=== PATIENT | female | born 1960 | race Caucasian/White ===

== ENCOUNTER 2017-08-22 18:35 | Inpatient (IN) | payer BC ==
[~2017-08-22] VITALS: Ht 157.5 cm; Wt 80.7 kg
[~2017-08-22 18:35] MED LIST: IBUPROFEN 800800 M1 PO; LISINOPRIL20 MG PO; PERCOCET 7.5-31 EACH PO; PROTONIX40 M1 PO; XANAX 0.5 MG0.5 MG PO
[2017-08-22 18:43] VITALS: BP 142/91
[2017-08-22] MEDS ORDERED: PRAZOSIN 1 MG CA1 MG PO (18:47)
[2017-08-22] MEDS ORDERED: NEURONTIN 300300 M1 PO (18:47)
[2017-08-22] MEDS ORDERED: PAXIL10 MG PO (18:47)
[2017-08-22] MEDS ORDERED: METHYLPHENIDATE20 MG PO (18:48)
[2017-08-22 19:07] LABS: ABSOLUTE LYMPHOCYTES 2.1 thou/uL (0.8-5.3); HEMOGLOBIN 13.5 gm/dL (12.0-15.0)
[2017-08-22 19:08] LABS: ABSOLUTE BASOPHILS 0.1 thou/uL (0.0-0.2); ABSOLUTE EOSINOPHILS 0.2 thou/uL (0.0-0.7); ABSOLUTE MONOCYTES 0.6 thou/uL (0.0-1.2); ABSOLUTE NEUTROPHILS 5.4 thou/uL (1.6-8.1); EOSINOPHILS 2.3 %; HEMATOCRIT 39.3 % (37.0-47.0); LYMPHOCYTES 24.8 %; MCH 31.3 pg (26.0-34.0); MCHC 34.5 g/dL (28.0-37.0); MCV 90.6 fL (80.0-100.0); MONOCYTES 7.6 %; MPV 9.4 fl. (7.2-11.1); NUCLEATED RBCS 0 /100WBC; PLATELET COUNT* 241 thou/uL (150-400); POLYS 64.3 %; RBC 4.33 mil/uL (4.20-5.00); RDW-CV 13.3 % (10.5-14.5); WBC 8.4 thou/uL (4.0-11.0)
[2017-08-22 19:15] LABS: CALCIUM 8.9 mg/dL (8.5-10.1); CREATININE 1.1 mg/dL (0.6-1.3); POTASSIUM 3.5 mmol/L (3.5-5.1)
[2017-08-22 19:17] LABS: APTT 19.8 Seconds (25.0-31.3); PROTIME 9.8 Seconds (9.20-11.50)
[2017-08-22 19:33] LABS: ALBUMIN 3.6 g/dL (3.4-5.0); CK-MB MASS 1.6 ng/mL (<0.5-3.6); MAGNESIUM 1.7 mg/dL (1.8-2.4); TOTAL BILIRUBIN 0.3 mg/dL (<0.1-1.0); TOTAL PROTEIN 7.2 g/dL (6.4-8.2); TROPONIN-I LEVEL 0.21 ng/mL (<0.06)
[2017-08-22 19:52] LABS: INFLUENZA A ANTIGEN None Detected (None Detect); INFLUENZA B ANTIGEN None Detected (None Detect)
[2017-08-22 22:00] VITALS: BP 126/66
[2017-08-22 23:00] VITALS: BP 112/63
[2017-08-23] VITALS: BP 103/70
[2017-08-23] MEDS ORDERED: PROAIR HFA8.5 GM INH (01:42)
[2017-08-23 02:42] LABS: HEMATOCRIT 36.7 % (37.0-47.0); HEMOGLOBIN 12.5 gm/dL (12.0-15.0); MCH 31.2 pg (26.0-34.0); MCHC 34.1 g/dL (28.0-37.0); MCV 91.3 fL (80.0-100.0); MPV 9.3 fl. (7.2-11.1); RBC 4.01 mil/uL (4.20-5.00); RDW-CV 13.3 % (10.5-14.5); WBC 7.3 thou/uL (4.0-11.0)
[2017-08-23 03:56] LABS: ALBUMIN 3.4 g/dL (3.4-5.0); CALCIUM 8.6 mg/dL (8.5-10.1); CREATININE 1.1 mg/dL (0.6-1.3); POTASSIUM 4.1 mmol/L (3.5-5.1); TOTAL BILIRUBIN 0.2 mg/dL (<0.1-1.0); TOTAL PROTEIN 6.4 g/dL (6.4-8.2)
[2017-08-23 04:00] VITALS: BP 86/47
[2017-08-23 08:00] VITALS: BP 101/61
[2017-08-23 12:00] VITALS: BP 123/74
--- NOTE | 2017-08-23 16:26 | 2DMMODE ---
[place] [address] 2 D/M-MODE ECHOCARDIOGRAM Name: JENNIFER LYNN Room: [address] ADM IN [facility]#: [id number] Admission: 08/22/17 Attend Phys: Julius Farias Discharge: Date of : 64 Date of Service: 08/23/17 1626 Report #: [id number] THIS REPORT FOR: //name// APPROVED REPORT Study performed: 08/23/2017 11:47:31 EXAM: Comprehensive 2D, Doppler, and color-flow Echocardiogram Patient Location: In-Patient Room #: 220 Status: routine BSA: 1.67 HR: 93 bpm BP: 86/47 mmHg Rhythm: NSR Other Information Study Quality: Good Indications Pulmonary Embolism Dyspnea 2D Dimensions LVEF(%): 58.40 (>50%) IVSd: 8.83 (7-11mm) LVOT Diam: 18.59 (18-24mm) LVDd: 37.39 mm PWd: 6.92 (7-11mm) Ascending Ao: 28.77 (22-36mm) LVDs: 26.08 (25-40mm) Aortic Root: 27.98 mm Reynoso's LVEF: 58.40 % Volumes Left Atrial Volume (Systole) LA ESV Index: 17.50 mL/m2 Aortic Valve AoV Peak Ifeanyi.: 1.44 m/s AO Peak Gr.: 8.25 mmHg LVOT Max P.87 mmHg AO Mean Gr.: 4.23 mmHg LVOT Mean P.29 mmHg LVOT Max V: 1.40 m/s AO V2 VTI: 22.23 cm LVOT Mean V: 0.81 m/s KIA (VTI): 2.81 cm2 LVOT V1 VTI: 23.05 [place] [address] 2 D/M-MODE ECHOCARDIOGRAM Name: JENNIFER LYNN Room: [address] IN .R.#: [id number] Admission: 08/22/17 Attend Phys: Julius Farias Discharge: Date of : 64 Date of Service: 08/23/17 1626 Report #: [id number] E/A Ratio: 0.71 MV Decel. Time: 166.95 ms MV E Max Ifeanyi.: 0.64 m/s MV PHT: 48.42 ms MVA (PHT): 4.54 cm2 TDI E/Lateral E': 8.00 E/Medial E': 5.33 Medial E' Ifeanyi.: 0.12 m/s Lateral E' Ifeanyi.: 0.08 m/s Pulmonary Valve PV Peak Ifeanyi.: 0.99 m/s PV Peak Gr.: 3.92 mmHg Tricuspid Valve TR Peak Gr.: 30.88 mmHg RVSP: 35.00 mmHg Left Ventricle The left ventricle is normal size. There is normal LV segmental wall motion. There is normal left ventricular wall thickness. Left ventricular systolic function is normal. LVEF is 65-70%. Grade I - abnormal relaxation pattern. Right Ventricle Right ventricle is moderately dilated. Right ventricle is moderately hypokinetic. Atria The left atrium size is normal. Right atrium is moderately dilated. Aortic Valve The aortic valve is normal in structure. No aortic regurgitation is present. There is no aortic valvular stenosis. Mitral Valve The mitral valve is normal in structure. There is no mitral valve regurgitation noted. No evidence of mitral valve stenosis. Tricuspid Valve The tricuspid valve is normal in structure. Mild tricuspid regurgitation. The RVSP is 35-40 mmHg. Pulmonic Valve The pulmonary valve is normal in structure. There is no pulmonic [place] [address] 2 D/M-MODE ECHOCARDIOGRAM Name: JENNIFER LYNN Room: [address] IN [facility]#: [id number] Admission: 08/22/17 Attend Phys: Julius Farias Discharge: Date of : 64 Date of Service: 08/23/17 1626 Report #: [id number] Great Vessels The aortic root is normal in size. IVC is normal in size and collapses with >50% inspiration Pericardium There is no pericardial effusion. <Conclusion> The left ventricle is normal size. There is normal left ventricular wall thickness. Left ventricular systolic function is normal. LVEF is 65-70%. Grade I - abnormal relaxation pattern. Right ventricle is moderately dilated. Right ventricle is moderately hypokinetic. Right atrium is moderately dilated. Mild tricuspid regurgitation. The RVSP is 35-40 mmHg. <ELECTRONICALLY SIGNED> By: Jaden Bloom MD, FACC 08/23/17 1626 1626 1626 Jaden Bloom MD, FACC /INF
--- NOTE | 2017-08-23 17:27 | EKG ---
[place] [address] ELECTROCARDIOGRAM REPORT Name: JENNIFER LYNN Room: [address] ADM IN M.R.#: [id number] Admission: 08/22/17 Attend Phys: Bayron Arambula Discharge: Date of : 64 Report #: [id number] THIS REPORT FOR: //name// 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 : 1960 Requested By: Len Talley Order Number: [id number] MD: Jaden Bloom Measurements Intervals [place] Rate: 95 P: 162 [place]: 134 QRS: -26 QRSD: 89 T: 195 QT: 399 QTc: 502 Interpretive Statements Sinus rhythm Abnormal R-wave progression, late transition Inferior infarct, old Abnrm T, consider ischemia, anterolateral lds Lead(s) II were not used for morphology analysis Artifact in lead(s) I,III,aVR,aVL,V1,V2,V3,V4,V5,V6 Compared to ECG 07/06/2010 15:23:00 Myocardial infarct finding now present Possible ischemia now present ST (T wave) deviation now present Sinus bradycardia no longer present Electronically Signed On 08-23-2017 17:27:00 HEALTH AND WELLNESS INSTRUCTOR by Jaden Bloom [email or web address] <ELECTRONICALLY SIGNED> By: Jaden Bloom MD, [facility] 08/23/17 1727 40 40 Jaden Bloom MD, [facility] /EPI
--- NOTE | 2017-08-23 17:32 | EKG ---
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 <ELECTRONICALLY SIGNED> By: Jaden Bloom MD, FACC 08/23/17 1732 1118 1118 Jaden Bloom MD, FACC /EPI
[2017-08-24] VITALS: BP 120/70
[2017-08-24 02:07] LABS: GLYCOHEMOGLOBIN (HGB A1C) 5.1 % (4.8-5.6)
[2017-08-24 04:00] VITALS: BP 106/69
[2017-08-24 07:30] VITALS: BP 137/86
[2017-08-24 12:12] VITALS: BP 118/61
--- NOTE | 2017-08-24 17:01 | CARDNUC ---
[place] [address] CARDIAC NUCLEAR IMAGING REPORT Name: JENNIFER LYNN Room: [address] IN [facility]#: [id number] Admission: 08/22/17 Attend Phys: Julius Farias Discharge: Date of : 64 Date of Service: 08/24/17 1701 Report #: [id number] THIS REPORT FOR: //name// APPROVED REPORT Exam: Nuclear Stress Test Indication: Chest pain, Dyspnea Patient Location: In-Patient Room #: 220 Stress Tech: Gely Rucker Stress Nurse: Myrna Cortez RN NM Tech:KANDY Mcgee Ht: 5 ft 2 in Wt: 172 lbs BSA: 1.79 m2 BMI: 31.45 Medical History Medical History: htn, pvd Medications: lovenox Allergies: codiene Stress Test Details Stress Test: Pharmacologic stress testing performed using 0.4 mg of regadenoson per 5 mL given IV over 10 seconds. Reason for pharmacologic stress test: physical limitation. HR Resting HR: 85 bpm Max Heart Rate (APMHR): 165 bpm Max HR Achieved: 105 bpm Target HR (85% APMHR): 140 bpm % of APMHR: 63 Recovery HR: 98 bpm BP Resting BP: 104/73 mmHg Max BP: 112/82 mmHg ECG Resting ECG: Sinus Rhythm, NSSTT changes Stress ECG: Sinus Rhythm, NSSTT changes ST Change: None Arrhythmia: None Recovery ECG: Sinus Rhythm, nonspecific ST-T abnormalities Recovery ST Change: None Recovery Arrhythmia: [place] [address] CARDIAC NUCLEAR IMAGING REPORT Name: JENNIFER LYNN Room: [address]#: [id number] Admission: 08/22/17 Attend Phys: Julius Farias Discharge: Date of : 64 Date of Service: 08/24/17 1701 Report #: [id number] Clinical Reason for Termination: Completed protocol Exercise duration: 0 min sec Exercise capacity: 1 METs Functional Aerobic Impairment 63% The patient had nausea but no chest discomfort with Lexiscan infusion. Nurse Comments pt became nauseated after eating and drinking after test. zofran 4 mg given ivp. symptoms resolved Stress ECG Conclusion The baseline 12-lead elect cardiac exam showed sinus rhythm with T-wave inversion without significant ST segment depression. EKGs obtained during and post Lexiscan infusion showed sinus rhythm with persistent T-wave inversion without significant ST segment change. There were no stress-induced arrhythmias. NM EXAM: Myocardial Perfusion REST/STRESS Imaging Protocol: Rest Tc-99m/Stress Tc-99m 1 day Resting Data Rest SPECT myocardial perfusion imaging was performed in supine position 30 minutes following the intravenous injection of 11.0 mCi of Tc-99m Sestamibi. Time of rest injection: 1300 Time of rest imagin The images were gated to evaluate regional wall motion and calculate left ventricular ejection fraction. Administration Route: IV Pharmacologic Stress Pharmacologic stress test was performed by injecting Regadenoson 0.4 mg IV push followed by the intravenous injection of 35.8 mCi of Tc-99m Sestamibi. Time of stress injection: 1430 Time of stress imagin Administration Route: IV Gated Stress SPECT was performed 40 minutes after stress injection. The images were gated to evaluate regional wall motion and calculate left ventricular ejection fraction. Stress only was performed in the [place] [address] CARDIAC NUCLEAR IMAGING REPORT Name: JENNIFER LYNN Room: [address] IN [facility]#: [id number] Admission: 08/22/17 Attend Phys: Julius Farias Discharge: Date of : 64 Date of Service: 08/24/17 1701 Report #: [id number] Study Quality Study: Good Artifact: No artifact Study Data At rest, the left ventricular ejection fraction was 83%.. Post stress, the left ventricular ejection was 78%.. TID = 1.25. Perfusion Normal left ventricular perfusion. Wall Motion Normal left ventricular wall motion. Nuclear Conclusion ECG Findings: negative for ischemia Clinical Findings: negative for ischemia Nuclear Findings: negative for ischemia Exercise Capacity: not assessed Left Ventricular Function: normal Risk Study: low Myocardial perfusion images show no defect to suggest infarct or ischemia. Left ventricular systolic function appears normal on gated studies. This is a low risk study. <Conclusion> The baseline 12-lead elect cardiac exam showed sinus rhythm with T-wave inversion without significant ST segment depression. EKGs obtained during and post Lexiscan infusion showed sinus rhythm with persistent T-wave inversion without significant ST segment change. There were no stress-induced arrhythmias. <ELECTRONICALLY SIGNED> By: Jaden Bloom MD, FACC 08/24/171700 00 00 Jaden Bloom MD, FACC /INF
[2017-08-24 18:00] VITALS: BP 117/71
[2017-08-24 20:31] VITALS: BP 135/69
[2017-08-25 00:18] VITALS: BP 113/72
[2017-08-25 04:30] VITALS: BP 115/70
[2017-08-25 05:36] LABS: HEMATOCRIT 31.6 % (37.0-47.0); HEMOGLOBIN 10.7 gm/dL (12.0-15.0); MCH 31.3 pg (26.0-34.0); MCHC 33.8 g/dL (28.0-37.0); MCV 92.4 fL (80.0-100.0); MPV 9.8 fl. (7.2-11.1); RBC 3.42 mil/uL (4.20-5.00); RDW-CV 13.3 % (10.5-14.5); WBC 11.7 thou/uL (4.0-11.0)
[2017-08-25 05:55] LABS: CALCIUM 8.6 mg/dL (8.5-10.1); POTASSIUM 4.6 mmol/L (3.5-5.1)
[2017-08-25 08:00] VITALS: BP 118/61
[2017-08-25 12:51] VITALS: BP 131/71
[2017-08-25 16:00] VITALS: BP 130/74
[2017-08-25 20:59] VITALS: BP 135/67
[2017-08-26] VITALS: BP 113/65
[2017-08-26 04:00] VITALS: BP 108/51
[2017-08-26 08:00] VITALS: BP 117/66
[2017-08-26 12:00] VITALS: BP 124/73
[2017-08-26 16:00] VITALS: BP 151/72
[2017-08-26 20:21] VITALS: BP 127/73
[2017-08-27 00:33] VITALS: BP 111/49
[2017-08-27 04:05] VITALS: BP 108/66
[2017-08-27 08:00] VITALS: BP 125/72
--- NOTE | 2017-08-27 10:00 | CON ---
[address] [address] CONSULTATION Name: JENNIFER LYNN Room: [address] IN M.R.#: [id number] Admission: 08/22/17 Attend Phys: Bayron Arambula Discharge: Date of : 64 Report #: [id number] THIS REPORT FOR: //name// CC: ANTHONY physician/PCP Julius Farias HISTORY OF PRESENT ILLNESS: The patient is a 57-year-old female patient who was admitted through the Emergency Room on 08/22/2017 with a chief complaint of shortness of breath. She has a background history of asthma since her teenage years. She is on an inhaler at home, but overall, she has never been hospitalized for asthma exacerbation, although she gets asthma exacerbation at least once or twice a year, some treated by steroids. She smoked for 20 years on and off. The last time she smoked was 5 years ago. She presented to the hospital with increasing shortness of breath of 2 weeks' duration. She felt as part of the asthma, she tried inhaler and nebulization treatment at home without any benefit. Then, she finally decided to come to the ER. In the ER, she was found to have pulmonary embolus as discussed below. Doppler ultrasound is pending at this point. She reported that she had shortness of breath even with exercise associated with occasional lightheadedness. She felt some substernal discomfort in her chest and sometimes the discomfort on the right side. She had been checking her oxygen at home. She noted with exertion, it dropped down to 89%. She has no sputum production. She thought she is wheezing, but she has no cough. She denied history of clotting disorder, no history of clots in the past. She is not sure about the family history. She grew up in foster homes. She is not on any estrogen or control pills. PAST MEDICAL HISTORY: Asthma as mentioned above, ex-smoker. She had history of D and C, hysterectomy, pacemaker for bladder. HOME MEDICATIONS: She is on paroxetine, prazosin, gabapentin, methylphenidate, albuterol sulfates and ibuprofen. ALLERGIES: CODEINE AND AZITHROMYCIN. FAMILY HISTORY: She grew up in foster home. She is not sure about the family history. SOCIAL HISTORY: Ex-smoker, smoked for 20 years, but never been a smoker. She quit 5 years ago. Does not drink alcohol excessively, does not abuse drugs. 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 REVIEW OF SYSTEMS: She reported some discomfort on the lower extremity and oxygen swelling mostly in the feet, but she did not have an actual calf pain. She denied any visual changes, headache, [place] [address] CONSULTATION Name: JENNIFER LYNN Room: [address] IN M.R.#: [id number] Admission: 08/22/17 Attend Phys: Bayron Arambula Discharge: Date of : 64 Report #: [id number] palpitation, nausea, vomiting, hematuria or bleeding from any orifice. Rest of the review system was negative. PHYSICAL EXAMINATION: VITAL SIGNS: She is on 3 liters oxygen with saturation more than 90%. Her blood pressure is 103/70. GENERAL: Speaks in full sentences, slightly anxious, awake, alert. HEENT: Normocephalic, atraumatic. Pupils equal, reactive to light. Extraocular muscle movements intact. External ears look healthy and normal. Oral cavity: Moist mucous membrane. Mallampati 2-3. NECK: Supple. CHEST: Diminished air movement bilaterally, prolonged expiratory phase. No wheezes, no tenderness and chest palpitation, no deformities. HEART: S1, S2. Tachycardic. ABDOMEN: Benign, soft, lax, nontender, positive bowel sounds. EXTREMITIES: No lower extremity. No calf tenderness. I did not appreciate edema. MUSCULOSKELETAL: No deformities. Normal on inspection, no contracture, no joint abnormality. LYMPHATICS: No palpable lymph node. PSYCHIATRIC: Mood and affect appropriate, anxious. Good insight and judgment. NEUROLOGIC: Moving 4 extremities spontaneously. No focal weakness. LABORATORY DATA: Her white blood count is 7.3 with hemoglobin 12.5 and platelet 217. Her creatinine is 1.1, potassium 4.1, sodium 142, troponin slightly elevated. Influenza screen is negative for A and B. Doppler ultrasound of the lower extremities is pending at this point. Echo is pending too. IMPRESSION: 1. Acute hypoxemic respiratory failure. 2. Pulmonary embolus. 3. History of asthma. CT scan was reviewed showed extensive pulmonary embolus involving both lungs. No definite infiltrate. PLAN: At this point, I would continue the current therapy. I agree with the full-dose anticoagulation at minimum. She needs to be anticoagulated for 6 months and reevaluated after that, may need hypercoagulable workup. She is on the steroids and nothing active at this point, we can start weaning the steroids, hopefully so in the coming day or 2. Continue the nebulization treatment. We will follow along with you. [address] [address] CONSULTATION Name: JENNIFER LYNN Room: [address] IN .R.#: [id number] Admission: 08/22/17 Attend Phys: Bayron Arambula Discharge: Date of : 64 Report #: [id number] Thank you for the consult. Discussed in detail with the patient and her family members. <ELECTRONICALLY SIGNED> By: Jaz Lino MD 08/27/17 1000 1117 1939Jaz Lino MD /nt
[2017-08-27 12:22] VITALS: BP 124/70
[2017-08-27] MEDS ORDERED: XANAX 0.25 MG0.25 MG PO (13:36)
[2017-08-27] MEDS ORDERED: XARELTO15 MG PO (13:37)
[2017-08-27] MEDS ORDERED: PREDNISONE 10 M10 MG PO (13:37)
[2017-08-27 14:37] VITALS: BP 124/70
--- NOTE | 2017-08-28 17:36 | EKG ---
[place] [address] ELECTROCARDIOGRAM REPORT Name: JENNIFER LYNN Room: [address] DIS IN M.R.#: [id number] Admission: 08/22/17 Attend Phys: Bayron Arambula Discharge: 08/27/17 Date of : 64 Report #: [id number] THIS REPORT FOR: //name// [facility] Test Date: 2017-08-27 Test Time: 00:14:11 Pat Name: JENNIFER LYNN Department: Room: [address] Gender: F Translator: CKLOTZ : 1960 Requested By: Julius Farias Order Number: [id number] Dante MD: Jaden Bloom Measurements Intervals [place] Rate: 77 P: 37 NE: 156 QRS: 1 QRSD: 105 T: 16 QT: 396 QTc: 449 Interpretive Statements Sinus rhythm Inferior infarct, old T wave inversion anterior leads consider ischemia Artifact in lead(s) II,III,aVR,aVL,aVF,V6 Compared to ECG 08/23/2017 11:18:44 Myocardial infarct finding now present Prolonged QT interval no longer present Electronically Signed On 08-28-2017 17:36:19 IT ADMIN by Jaden Bloom [email or web address] <ELECTRONICALLY SIGNED> By: Jaden Bloom MD, FACC 08/28/17 1736 0014 0014 Jaden Bloom MD, FACC /EPI
== END 2017-08-27 19:45 | disposition home or self-care (01) | DRG 175 ==
LOC: M.ERS 18:35 → M.TBA-ER 20:27 → M.ERS 20:27 → M.2W 20:33 → M.TBA-ER 20:33 → M.2W 21:53
PROVIDERS: Emergency Medicine; Family Medicine; Internal Medicine; ADMIT Internal Medicine
DX: I26.99 Other pulmonary embolism without acute cor pulmonale (principal); J96.01 Acute respiratory failure with hypoxia; F32.9 Major depressive disorder, single episode, unspecified; F43.10 Post-traumatic stress disorder, unspecified; R73.9 Hyperglycemia, unspecified; J45.909 Unspecified asthma, uncomplicated; F41.9 Anxiety disorder, unspecified; I27.20 Pulmonary hypertension, unspecified; Z88.8 Allergy status to other drugs, medicaments and biological substances; Z90.710 Acquired absence of both cervix and uterus; Z87.891 Personal history of nicotine dependence; Z82.49 Family history of ischemic heart disease and other diseases of the circulatory system

== ENCOUNTER → 2017-10-26 | Outpatient (CLI) | payer BC ==
[~2017-10-26] MED LIST changes: +CIPROFLOXACIN500 M1 PO; +DYAZIDE 37.5-21 EACH PO; +FLONASE 0.05%50 MCG NASAL; +LEXAPRO20 MG PO; +LYRICA 50 MG50 MG PO; +METHYLPHENIDATE10 M1 PO; +METHYLPHENIDATE20 MG PO; +NEURONTIN 300300 M1 PO; +OMEPRAZOLE20 MG PO; +PAXIL10 MG PO; +PRAZOSIN 1 MG CA1 MG PO; +PREDNISONE 10 M10 MG PO; +PROAIR HFA8.5 GM INH; +TOPROL XL25 MG PO; +XANAX 0.25 MG0.25 MG PO; +XARELTO15 MG PO; +XARELTO20 MG PO
== END ==
LOC: M.CT 10:53
DX: I26.99 Other pulmonary embolism without acute cor pulmonale (principal); J98.11 Atelectasis

== ENCOUNTER 2018-05-04 16:21 | Emergency (ER) | payer BC ==
[~2018-05-04] VITALS: Ht 157.5 cm; Wt 74.8 kg
[~2018-05-04 16:21] MED LIST changes: -CIPROFLOXACIN500 M1 PO; -DYAZIDE 37.5-21 EACH PO; -FLONASE 0.05%50 MCG NASAL; -LEXAPRO20 MG PO; -LYRICA 50 MG50 MG PO; -METHYLPHENIDATE10 M1 PO; -OMEPRAZOLE20 MG PO; -TOPROL XL25 MG PO; -XARELTO20 MG PO
[2018-05-04] MEDS ORDERED: DYAZIDE 37.5-21 EACH PO (16:38)
[2018-05-04] MEDS ORDERED: TOPROL XL25 MG PO (16:38)
[2018-05-04] MEDS ORDERED: XARELTO20 MG PO (16:39)
[2018-05-04] MEDS ORDERED: FLONASE 0.05%50 MCG NASAL (16:39)
[2018-05-04] MEDS ORDERED: LYRICA 50 MG50 MG PO (16:41)
[2018-05-04] MEDS ORDERED: OMEPRAZOLE20 MG PO (16:41)
[2018-05-04] MEDS ORDERED: LEXAPRO20 MG PO (16:42)
[2018-05-04] MEDS ORDERED: METHYLPHENIDATE10 M1 PO (16:42)
[2018-05-04 16:50] LABS: URINE BILIRUBIN NEGATIVE (Negative); URINE BLOOD 3+ (Negative); URINE COLOR YELLOW; URINE GLUCOSE-RANDOM NEGATIVE (Negative); URINE KETONES NEGATIVE (Negative); URINE LEUKOCYTES-REFLEX TRACE (Negative); URINE NITRITE-REFLEX NEGATIVE (Negative); URINE PROTEIN NEGATIVE (Negative); URINE UROBILINOGEN 0.2 E.U./dl (0.2-1.0)
[2018-05-04 16:51] LABS: URINE CLARITY HAZY
[2018-05-04 17:04] LABS: SQUAMOUS >10 Many /LPF (0-3)
[2018-05-04 17:05] LABS: CASTS None Seen /LPF (None Seen); URINE RBC >20 Many /HPF (0-2)
[2018-05-04 17:06] LABS: URINE WBC-REFLEX 6-15 Few /HPF (0-5)
[2018-05-04 17:07] LABS: BACTERIA-REFLEX 1-9 Few /HPF (None Seen); CRYSTALS None Seen /LPF (None Seen)
[2018-05-04 17:14] LABS: ABSOLUTE BASOPHILS 0.1 thou/uL (0.0-0.2); ABSOLUTE EOSINOPHILS 0.1 thou/uL (0.0-0.7); ABSOLUTE LYMPHOCYTES 1.7 thou/uL (0.8-5.3); ABSOLUTE MONOCYTES 0.5 thou/uL (0.0-1.2); ABSOLUTE NEUTROPHILS 4.9 thou/uL (1.6-8.1); EOSINOPHILS 1.4 %; HEMATOCRIT 39.5 % (37.0-47.0); HEMOGLOBIN 13.4 gm/dL (12.0-15.0); LYMPHOCYTES 23.5 %; MCH 30.6 pg (26.0-34.0); MCHC 33.9 g/dL (28.0-37.0); MCV 90.5 fL (80.0-100.0); MONOCYTES 6.5 %; MPV 8.8 fl. (7.2-11.1); NUCLEATED RBCS 0 /100WBC; PLATELET COUNT* 269 thou/uL (150-400); POLYS 67.6 %; RBC 4.36 mil/uL (4.20-5.00); RDW-CV 13.5 % (10.5-14.5); WBC 7.2 thou/uL (4.0-11.0)
[2018-05-04 17:21] LABS: CALCIUM 8.2 mg/dL (8.5-10.1); POTASSIUM 3.4 mmol/L (3.5-5.1)
[2018-05-04 17:22] LABS: APTT 31.3 Seconds (25.0-31.3); INR 1.2
[2018-05-04 17:25] LABS: ALBUMIN 3.1 g/dL (3.4-5.0); TOTAL BILIRUBIN 0.2 mg/dL (<0.1-1.0); TOTAL PROTEIN 5.9 g/dL (6.4-8.2)
[2018-05-04] MEDS ORDERED: CIPROFLOXACIN500 M1 PO (17:44)
[2018-05-04 17:58] VITALS: BP 108/41
== END 2018-05-04 18:00 | disposition home or self-care (01) ==
LOC: M.ERS 16:21
PROVIDERS: Family Medicine; Nurse Practitioner Family
DX: N39.0 Urinary tract infection, site not specified (principal); I10 Essential (primary) hypertension; J45.909 Unspecified asthma, uncomplicated; F41.9 Anxiety disorder, unspecified; F32.9 Major depressive disorder, single episode, unspecified; K21.9 Gastro-esophageal reflux disease without esophagitis; Z90.710 Acquired absence of both cervix and uterus; N19 Unspecified kidney failure; Z88.1 Allergy status to other antibiotic agents; Z88.5 Allergy status to narcotic agent